=== PATIENT | female | born 1980 | race African-American/Black ===

== ENCOUNTER 2016-09-14 08:26 | Emergency (ER) | payer OTHER ==
[~2016-09-14] VITALS: Ht 167.6 cm; Wt 79.4 kg
[2016-09-14] MEDS ORDERED: KETOROLAC TROMETHAMINE 10 MG TAB PO ONE (10:15)
--- NOTE | 2016-09-14 10:46 | REP ---
Chest two views HISTORY: Chest pain Comparison: None Patchy density is present in the right lower lobe consistent with atelectasis or infiltrate. The left lung is clear. There is a small right pleural effusion. The heart is normal in size. The pulmonary vasculature is normal in appearance. The bony structure is intact. IMPRESSION: 1. Right lower lobe atelectasis or infiltrate. 2. Small right pleural effusion. Signed by Deepak Turcios MD 09/14/2016 10:38 A
[2016-09-14 12:10] LABS: CONTROL LINE HCG INT CTR LINE PRESENT
[2016-09-14 12:15] LABS: ANION GAP 8 MEQ/L (8-16); BLOOD UREA NITROGEN 8 MG/DL (7-18); CALCIUM LEVEL 9.1 MG/DL (8.5-10.1); CARBON DIOXIDE LEVEL 29 MEQ/L (21-32); CHLORIDE LEVEL 103 MEQ/L (98-107); CREATININE FOR GFR 0.74 MG/DL (0.55-1.02); GLOMERULAR FILTRATION RATE > 60.0 (>60); GLUCOSE, FASTING 93 MG/DL (70-105); POTASSIUM SERUM 3.9 MEQ/L (3.5-5.1); SODIUM LEVEL 140 MEQ/L (136-145)
[2016-09-14] MEDS ORDERED: ISOVUE-370 76% 100ML VIAL (Q9967) As Ordered ONE (12:23)
--- NOTE | 2016-09-14 12:56 | REP ---
Chest CT with IV contrast, pulmonary CT angiography: Comparison is the PA and lateral plain film study performed earlier today. There are no emboli in the pulmonary trunk or in the central right or left pulmonary arteries. There are no emboli in the pulmonary artery lobe or segment branches. There is a small right pleural effusion. There is an infiltrate in the right lower lobe. The left lung is clear. There is no mediastinal, hilar or axillary lymphadenopathy. The thoracic aorta is unremarkable. Cardiac size is normal. There is no pericardial effusion. The visualized upper abdominal contents are unremarkable. Impression: There is no pulmonary embolus. There is a right pleural effusion. There is an infiltrate in the right lower lobe. Signed by Virgilio Harmon MD 09/14/2016 12:48 P
[2016-09-14] MEDS ORDERED: DOXY-278 PO (13:39)
[2016-09-14 14:00] VITALS: BP 128/87
--- NOTE | 2016-09-14 18:56 | ECGEPIP ---
Stationary ECG Study [facility] - ED Test Date: 2016-09-14 Pat Name: DARCI VERONICA Department: Room: - Gender: F Package Maker: ainsley : 1980 Requested By: Aby Dai Order Number: [id number] Reading MD: Alberto Clemons Measurements Intervals [place] Rate: 125 P: 57 CA: 92 QRS: 26 QRSD: 82 T: 26 QT: 324 QTc: 468 Interpretive Statements SINUS TACHYCARDIA WITH SHORT CA INTERVAL MINIMAL ST DEPRESSION ABNORMAL RHYTHM ECG NO PRIORS Electronically Signed On 09-14-2016 18:56:26 EDT by Alberto Clemons
== END 2016-09-14 14:00 | disposition home or self-care (01) ==
LOC: M ED 09:34
DX: J18.9 Pneumonia, unspecified organism (principal)
CPT/HCPCS: 71020; 71275; 80048; 84703; 85379; 93005; 99284; Q9967